=== PATIENT | male | born 1945 | race Caucasian/White ===

== ENCOUNTER → 2018-06-22 | Day surgery (SDC) | payer MEDICARE ==
[~2018-06-22] MED LIST: CHLO50TA PO; GLYCOPYRROLATE 1 MG/5 ML VIAL. ONE; IV RINGERS,LACTATED 1000ML 1,000 ML IV SCH; LIDOCAINE 2% PF 5 ML VIAL. ONE; POTA10TA12 PO; PROPOFOL 40 ML IV ONE; TAMS0.4C97 PO; ZOLP10TA4 PO
--- NOTE | 2018-06-22 10:44 | PREOP HP ---
DATE OF SERVICE: 06/22/2018 REQUESTING PHYSICIAN: Dr. Josemanuel Davalos. PRIMARY CARE PHYSICIAN: Dr. Josemanuel Davalos. REASON FOR PROCEDURE: Abdominal pain. HISTORY OF PRESENT ILLNESS: This is a 72-year-old male who presents for abdominal pain. FAMILY MEDICAL HISTORY: No history of colon cancer. SOCIAL HISTORY: He is a current every day smoker; has been smoking for 6-10 years. No alcohol or IV drug abuse. MEDICATIONS: MAR was reviewed. REVIEW OF SYSTEMS: A 13-point review of systems was done. It is positive as per HPI and otherwise negative. PHYSICAL EXAMINATION: VITAL SIGNS: He is afebrile and vital signs are stable. GENERAL: He is a well-developed, well-nourished male, in no apparent distress. HEENT: His oropharynx is clear. CARDIOVASCULAR: S1, S2. LUNGS: Clear. ABDOMEN: He has diastasis recti and has some tenderness in his right lower quadrant. EXTREMITIES: No edema. NEUROLOGIC: Awake, alert and oriented x 3. ASSESSMENT AND PLAN: Left upper quadrant pain. I will proceed with upper and lower endoscopy for further evaluation. The risks and benefits including bleeding, perforation, non-diagnosis and sedation were explained and he has agreed to proceed. Thank you for allowing me to participate in the care of this patient. JENNIFER LUTZ MD DR: BRIA/jessica JOB#: [id number] / [id number]
[2018-06-22 13:22] VITALS: BP 153/66
--- NOTE | 2018-06-23 16:07 | PATHOLOGY ---
[facility] Accession Number: [id number] . 01 Material submitted: . PART A: small bowel - SMALL BOWEL BIOPSY PART B: stomach - GASTRIC ANTRUM BIOPSY PART C: esophagus - DISTAL ESOPHAGUS BIOPSY. Modifiers: distal PART D: rectum - SIGMOID-RECTO POLYP BIOPSY. Modifiers: sigmoid . 01 Clinical history: . LUQ abdominal pain . 02 Diagnosis: A. Small bowel biopsy: - No significant pathologic abnormalities. . B. Gastric biopsy, gastric antral nodule: - Polypoid segment of gastric antral/body transition mucosa showing mild chronic gastritis. . C. Esophageal biopsy, distal esophagus: - Segment of hyperplastic squamous esophageal mucosa and segments of gastric mucosa showing mild chronic inflammation. . D. Colorectal biopsies, sigmoid rectal polyps: - Hyperplastic polyps. LBQ/06/23/2018 . 02 Comment: Sections of the small bowel biopsy reveal segments of duodenal and small intestine mucosa. Where best oriented, the mucosal villi show no sprue-like changes or significant inflammatory changes. Sections of the gastric antral nodule biopsy reveal polypoid segments of gastric antral/body transition mucosa showing congestion and mild chronic inflammation. A properly controlled immunoperoxidase stain for Helicobacter is negative for Helicobacter organisms. There are no adenomatous changes or evidence of malignancy. Sections of the distal esophageal biopsy reveal a single small segment of hyperplastic squamous esophageal mucosa containing a few intraepithelial eosinophils, and two segments of gastric mucosa showing mild chronic inflammation. One of these segments contains a few goblet cells. However, there is no evidence of Franks's change, dysplasia, or malignancy. Sections of the sigmoid colon and rectal biopsies reveal several hyperplastic polyps. There are no adenomatous changes or evidence of malignancy. (JPM/db; 06/23/2018) . Special stain performed: Immunoperoxidase for Helicobacter on B1 . Electronically signed: . Te Monroy MD, Pathologist NPI- [id number] . 01 Gross description: . A. Received in formalin labeled "Diogo Mccarty, small bowel BX," are 6 segments of rowan soft tissue measuring 1.0 x 0.8 x 0.3 cm in aggregate dimensions and ranging from 0.1 to 0.5 cm in maximum dimension. The specimen is submitted entirely in cassette A1. . B. Received in formalin labeled "Diogo Mccarty, gastric antrum BX," is a single segment of rowan soft tissue measuring 0.3 cm in maximum dimension. The specimen is submitted entirely in cassette B1. . C. Received in formalin labeled "Lul, Diogo, distal esophagus BX," are 2 segments of rowan soft tissue measuring 0.9 x 0.3 x 0.3 cm in aggregate dimensions and ranging from 0.4 to 0.5 cm in maximum dimension. The specimen is submitted entirely in cassette C1. . D. Received in formalin labeled "Lul, Diogo, sigmoid/recto polyp BX," are 3 segments of rowan soft tissue measuring 1.0 x 0.5 x 0.2 cm in aggregate dimensions and ranging from 0.3 to 0.7 cm in maximum dimension. The specimen is submitted entirely in cassette D1. (TSD; 06/22/2018) TOB/TOB . 02 Pathologist provided ICD-10: K29.50, K20.9, K62.1 . 02 CPT . 302281, 876855, [id number], [id number], [id number] Specimen Comment: A courtesy copy of this report has been sent to Specimen Comment: [phone], . Specimen Comment: Report sent to / DR SILVESTRE Performed at: [facility] [address], [place] [id number] MD Vicente Salmeron MD Phone: [phone] [facility]formed [facility]: [facility] [address] [place], [place] [id number] MD Te Monroy MD Phone: [phone]
== END | disposition home or self-care (01) ==
LOC: SURG 08:14
PROVIDERS: ATTEND Internal Medicine Gastroenterology
DX: K57.30 Diverticulosis of large intestine without perforation or abscess without bleeding (principal); K62.1 Rectal polyp; K64.0 First degree hemorrhoids; K21.0 Gastro-esophageal reflux disease with esophagitis; K29.50 Unspecified chronic gastritis without bleeding; K31.89 Other diseases of stomach and duodenum; I10 Essential (primary) hypertension; I25.10 Atherosclerotic heart disease of native coronary artery without angina pectoris; G47.33 Obstructive sleep apnea (adult) (pediatric); Z79.899 Other long term (current) drug therapy; M19.90 Unspecified osteoarthritis, unspecified site; Z98.52 Vasectomy status; Z90.49 Acquired absence of other specified parts of digestive tract; Z98.890 Other specified postprocedural states; Z87.442 Personal history of urinary calculi; N40.0 Benign prostatic hyperplasia without lower urinary tract symptoms; Z82.49 Family history of ischemic heart disease and other diseases of the circulatory system; F17.210 Nicotine dependence, cigarettes, uncomplicated
CPT/HCPCS: 43239; 45380; 88305; 88342; J2001; J2704; J3490